=== PATIENT | female | born 1950 | race Two or more races ===

== ENCOUNTER 2022-07-23 05:43 | Day surgery (SDC) | payer OTHER | END 2022-07-23 10:25 | disposition home or self-care (01) | LOC: AMB-ENDOS 05:43 | PROVIDERS: ATTEND Colon & Rectal Surgery | DX: D12.2 Benign neoplasm of ascending colon (principal); K57.30 Diverticulosis of large intestine without perforation or abscess without bleeding; K92.1 Melena; Z20.822 Contact with and (suspected) exposure to COVID-19; Z88.6 Allergy status to analgesic agent ==